=== PATIENT | male | born 1955 | race African-American/Black ===

== ENCOUNTER 2020-07-31 14:33 | Emergency (ER) | payer SELFPAY ==
[~2020-07-31] VITALS: Ht 175.3 cm; Wt 85.0 kg
[2020-07-31 15:13] VITALS: BP 160/95
[2020-07-31] MEDS ORDERED: KETOROLAC 60MG/2ML VIAL IM ONE (15:30)
[2020-07-31] MEDS ORDERED: HYDROCODONE/ACETAMINOPHEN 5/325MG TABLET PO ONE (16:45)
[2020-07-31] MEDS ORDERED: ONDANSETRON 4MG ODT PO ONE (16:45)
== END 2020-07-31 17:57 | disposition home or self-care (01) ==
LOC: ER 14:33
DX: M25.461 Effusion, right knee (principal); G89.29 Other chronic pain; M25.561 Pain in right knee
CPT/HCPCS: 73562; 96372; 99283; J1885; L1830; Q0162